=== PATIENT | female | born 1990 | race Caucasian/White ===

== ENCOUNTER 2016-06-23 00:07 | Emergency (ER) | payer OTHER ==
[2016-06-23] MEDS ORDERED: Sulfameth/Trimethoprim DS 800-160mg TAB ONE (02:38)
[2016-06-23] MEDS ORDERED: Naproxen 500 MG TAB ONE (02:38)
[2016-06-23] MEDS ORDERED: Cephalexin 500 MG CAP ONE (02:38)
[2016-06-23] MEDS ORDERED: HYDROcodone/Acetaminophen 10/325 mg Tablet ONE (02:38)
== END 2016-06-23 03:02 | disposition home or self-care (01) ==
LOC: MADERS 00:07
DX: S00.86XA Insect bite (nonvenomous) of other part of head, initial encounter (principal); L08.9 Local infection of the skin and subcutaneous tissue, unspecified; W57.XXXA Bitten or stung by nonvenomous insect and other nonvenomous arthropods, initial encounter
CPT/HCPCS: 87070; 87077; 87186; 87205; 99283